=== PATIENT | female | born 1955 | race Caucasian/White ===

== ENCOUNTER 2020-04-15 18:08 | Emergency (ER) | payer MEDICARE, BC ==
[~2020-04-15] VITALS: Ht 162.6 cm; Wt 86.4 kg
[2020-04-15 18:46] LABS: BASOPHILS % (AUTO) 0.5 % (0-1); EOSINOPHILS % (AUTO) 0.3 % (0-6); HEMATOCRIT 44.9 % (35.0-45.0); HEMOGLOBIN 14.9 g/dl (12.0-16.0); LYMPHOCYTES # (AUTO) 2.4 X10'3 (1.1-4.8); LYMPHOCYTES % (AUTO) 28.8 % (21-51); MEAN CORPUSCULAR HEMOGLOBIN 30.6 PG (27.0-31.0); MEAN CORPUSCULAR HGB CONC 33.1 g/dL (33.0-36.5); MEAN CORPUSCULAR VOLUME 92.4 FL (78-98); MEAN PLATELET VOLUME 8.1 FL (7.4-10.4); MONOCYTES % (AUTO) 12.1 % (2-12); NEUTROPHILS # (AUTO) 4.8 X10'3 (1.8-7.7); NEUTROPHILS % (AUTO) 58.3 % (42-75); PLATELET COUNT 146 X10'3 (140-440); RED BLOOD COUNT 4.86 X10'6 (4.20-5.60); RED CELL DISTRIBUTION WIDTH 14.2 % (11.5-14.5); WHITE BLOOD COUNT 8.2 X10'3 (4.5-11.0)
[2020-04-15 18:58] LABS: ALANINE AMINOTRANSFERASE 24 U/L (12-78); ALBUMIN 3.9 G/DL (3.4-5.0); ALBUMIN/GLOBULIN RATIO 1.1 (1.1-1.5); ALKALINE PHOSPHATASE 50 IU/L (46-116); ANION GAP 9 (8-16); ASPARTATE AMINO TRANSFERASE 14 U/L (10-37); BILIRUBIN,TOTAL 0.9 MG/DL (0.1-1.0); BLOOD UREA NITROGEN 14 MG/DL (7-18); BUN/CREATININE RATIO 18.4 (6.6-38.0); CHLORIDE 104 MMOL/L (99-107); CREATININE 0.76 MG/DL (0.40-0.90); GLUCOSE 124 MG/DL (70-104); POTASSIUM 3.9 MMOL/L (3.5-5.1); SODIUM 139 MMOL/L (135-145); TOTAL CARBON DIOXIDE 26.4 MMOL/L (24-32); TOTAL PROTEIN 7.5 G/DL (6.4-8.2); eGFR 76 ML/MIN
[2020-04-15] MEDS ORDERED: morphine 4 MG/ML inj SYRINge IV PRN (19:30)
[2020-04-15] MEDS ORDERED: ondansetron/PF 4mg/2ml inj IV ONE (19:30)
[2020-04-15] MEDS ORDERED: normal saline 1000ML IV soln IVB ONE (19:30)
[2020-04-15] MEDS ORDERED: PRED10TA23 PO (21:03)
[2020-04-15] MEDS ORDERED: AMOX-117 PO (21:03)
[2020-04-15] MEDS ORDERED: ONDA4TAB6 PO (21:03)
[2020-04-15 21:16] VITALS: BP 110/66
== END 2020-04-15 21:19 | disposition home or self-care (01) ==
LOC: ER 18:11
DX: K52.9 Noninfective gastroenteritis and colitis, unspecified (principal); R10.32 Left lower quadrant pain; R10.12 Left upper quadrant pain; I10 Essential (primary) hypertension; E11.9 Type 2 diabetes mellitus without complications; Z98.890 Other specified postprocedural states; Z88.2 Allergy status to sulfonamides; Z79.2 Long term (current) use of antibiotics; Z79.899 Other long term (current) drug therapy
CPT/HCPCS: 36415; 71045; 74176; 80053; 83880; 84484; 85025; 93005; 96361; 96374; 96375; 99285; J2270; J2405; J7030

== ENCOUNTER 2023-01-04 22:17 | Emergency (ER) | payer MEDICARE, BC ==
[~2023-01-04] VITALS: Ht 162.6 cm; Wt 89.1 kg
[~2023-01-04 22:17] MED LIST: ONDA4TAB6 PO
[2023-01-04 22:28] VITALS: TEMP 98.1
[2023-01-04] MEDS ORDERED: normal saline 1000ML IV soln IVB STA (22:34)
[2023-01-04] MEDS ORDERED: epiNEPHrine 1 mg/ml inj SQ ONE (22:35)
[2023-01-04] MEDS ORDERED: diphenhydrAMINE 50 mg/ml inj IV ONE (22:35)
[2023-01-04] MEDS ORDERED: methylPREDNISolone sod succ 125mg/2ml vial IV ONE (22:35)
[2023-01-04] MEDS ORDERED: famotidine/PF 10 mg/ml inj IV ONE (22:35)
[2023-01-04] MEDS ORDERED: famotidine/PF 10 mg/ml inj IV STA (23:03)
[2023-01-05] MEDS ORDERED: CEPH250T PO (00:22)
[2023-01-05] MEDS ORDERED: EPIN0.3P3 IM (00:22)
[2023-01-05 00:35] VITALS: BP 113/50; PULSE 67; O2SAT 91
[2023-01-05 00:38] VITALS: RESP 18
== END 2023-01-05 00:40 | disposition home or self-care (01) ==
LOC: ER 22:18
DX: T78.40XA Allergy, unspecified, initial encounter (principal); T37.0X5A Adverse effect of sulfonamides, initial encounter; I10 Essential (primary) hypertension; E11.9 Type 2 diabetes mellitus without complications; Z88.2 Allergy status to sulfonamides; Z79.899 Other long term (current) drug therapy; Y92.89 Other specified places as the place of occurrence of the external cause; X58.XXXA Exposure to other specified factors, initial encounter
CPT/HCPCS: 93005; 96361; 96374; 96375; 99284; J1200; J2930; J3490; J7030

== ENCOUNTER 2024-07-27 12:28 | Emergency (ER) | payer MEDICARE, BC ==
[~2024-07-27] VITALS: Ht 162.6 cm; Wt 94.5 kg
[~2024-07-27 12:28] MED LIST changes: +EPIN0.3P3 IM
[2024-07-27 12:34] VITALS: BP 141/70; PULSE 69; RESP 16; TEMP 98; O2SAT 97
[2024-07-27] MEDS: LIDOcaine 1% 30ml preserv. free vial IJ ONE (13:20)
[2024-07-27] MEDS: TETanus/Pertussis (Acell)/Diphther VAC/PF (Tdap-Adult) 0.5ml syringe IMVAC ONE (13:41)
[2024-07-27] MEDS: LIDOcaine 1% W/epiNEPHrine 1:100,000 20ml vial SQ ONE (14:21)
--- NOTE | 2024-07-27 14:27 | Physician Documentation ---
History of Present Illness ~ Chief Complaint: Laceration Stated Complaint: THUMB LAC Time Seen by MD: 12:41 OK to notify your PCP?: Yes Primary Medical Doctor: Dr. Campbell Source: patient Mode of Arrival: POV Exam Limitations: no limitations HPI 68-year-old right handed female who is here with left index finger pain after she cut her thumb with a knife. She accidentally cut her self with a knife which he was trying to make lunch. She states but I guess I learned not to move so fast. last tetanus was over 10 years ago. She states that she is able to move her digit normally. Tetanus Within 5 Years: Yes Medication Reconciliation Allergies: Coded Allergies: Sulfa (Sulfonamide Antibiotics) (Verified Allergy, Severe, ANAPHYLAXIS, ) latex (Verified Allergy, Mild, 07/27/24) redness ciprofloxacin (Verified Allergy, Unknown, 07/27/24) Uncoded Allergies: BISUPROLOL (Allergy, Unknown, 07/27/24) FUMARATE (Allergy, Unknown, 07/27/24) Scheduled Epinephrine (Epipen 2-Andrey), 1 SYR IM ONCE Ondansetron Hcl (Zofran), 1 TAB PO Q6H Past Medical History Past Medical History: Hypertension, Diabetes Other Past Surgical History: Rectal replacement Alcohol Use: None Drug Use: none Review of Systems All Other Systems at this time: Reviewed and Negative Physical Exam Vital Signs: Temperature: 98.0, Source: Temporal, Heart Rate: 69, Respiratory Rate: 16, BP: 141/70, Pulse Oximetry: 97, Weight: 94.550 Physical Exam GENERAL: Alert, no acute distress. HEENT: NCAT, EOMI, PERRL, normal oropharynx, moist oral mucosa. NECK: Supple, trachea midline. CARDIAC: Regular rate and rhythm, no murmurs, rubs, or gallops. PV: Equal distal pulses. No lower extremity edema, cap refill less than 2 seconds. RESPIRATORY: Equal breath sounds, clear to auscultation bilaterally, no respiratory distress. MUSCULOSKELETAL: LEFT INDEX FINGER THERE IS A TRIANGULAR SHAPED LACERATION OVER THE VOLAR SURFACE. NO SURROUNDING ERYTHEMA, EDEMA. AROM OF DIGIT IS FULL. Normal gait. NEUROLOGICAL: Awake, alert, and oriented x 3. SKIN: Warm/dry, no pallor, no rash. PSYCH: Alert and appropriate. Affect congruent with mood. Speech is clear. Good eye contact. Procedures Laceration/Wound Repair Laceration : Location: index finger Length (cm): 2 Anesthesia: Lidocaine Volume Anesthetic (mls): 6 Prep: irrigated by nurse Irrigated w/ Saline (mls): 500 Debrided: minimal Undermining: none Margins: revised Foreign Body: not identified Repaired: skin Suture Size/Type: 5-0, ethilon Dressing Applied: simple Splint Applied?: Yes Type of Splint Applied: digit splint Tolerated Procedure Well?: yes, no complications Progress Results/Orders Results/Orders Orders - LUCIANA MCLEAN Laceration/I&D Tray Set Up (07/27/24 13:16) Completed Orders - LUCIANA MCLEAN Tetanus/Pertuss/Diph Acell/Pf (Boostrix (07/27/24 13:20) Lidocaine 1% 30ml Vial (Xylocaine 1% Via (07/27/24 13:20) Lidocaine 1% W/Epi 1:100,000 (Xylocaine (07/27/24 13:35) Medications Received in ER Medications (Trade) Dose Ordered Sig/Andrei Route PRN Reason Start Time Stop Time Status Last Admin Dose Admin (Boostrix vaccine syringe) 0.5 ml ONCE ONCE IMVAC 07/27/24 13:20 07/27/24 13:21 DC 07/27/24 13:41 0.5 ML Vital Signs 07/27/24 12:34 Temp 98.0 Pulse 69 Resp 16 B/P (MAP) 141/70 Pulse Ox 97 Medical Decision Making Differential Dx:Considerations: Include: Abrasion, Avulsion, Contusion, Laceration, Fracture, Hematoma, Neurovascular injury, Retained foreign body Departure Time of Disposition: 17:27 Disposition: 01 HOME / SELF CARE / HOMELESS Impression: Primary Impression: Laceration Condition: Stable Discharge Instructions: Laceration Care, Adult, [id number] Additional Instructions: DO NOT GET WET X 24HOURS SUTURES GET REMOVED IN 7DAYS IF ANY SIGNS OR SYMPTOMS OF INFECTION RETURN TO ER TAKE TYLENOL AND MOTRIN FOR PAIN Referrals: NO PRIMARY CARE PROVIDER (PCP) Education Educated: Patient Educated regarding: diagnosis, treatment, need for follow up Signature Scribe Signature: X Attestation: LUCIANA CERDA July 27, 2024 14:27
== END 2024-07-27 14:36 | disposition home or self-care (01) ==
LOC: ER 12:29
DX: S61.211A Laceration without foreign body of left index finger without damage to nail, initial encounter (principal); I10 Essential (primary) hypertension; E11.9 Type 2 diabetes mellitus without complications; Z88.2 Allergy status to sulfonamides; Z91.040 Latex allergy status; Z79.899 Other long term (current) drug therapy; W26.0XXA Contact with knife, initial encounter; Y93.89 Activity, other specified; Y92.89 Other specified places as the place of occurrence of the external cause; Y99.8 Other external cause status
CPT/HCPCS: 12001; 90715; 99283; A6258; A6402; G0008; Z7610; 90471; A6449